=== PATIENT | female | born 1945 | race Two or more races ===

== ENCOUNTER 2018-05-18 21:37 | Inpatient (IN) | payer OTHER, MEDICAID ==
[~2018-05-18] VITALS: Ht 147.3 cm; Wt 58.8 kg
[2018-05-18 22:28] LABS: Basophils # (auto) 0 uL; Basophils % (auto) 0.1 % (0.0-2.0); Eosinophils # (auto) 0 uL; Eosinophils % (auto) 0.1 % (0.0-7.0); Hematocrit 36.4 % (36.0-46.0); Hemoglobin 12.3 g/dL (12.2-16.2); Lymphocytes # (auto) 0.3 uL; Lymphocytes % (auto) 3.8 % (10.0-50.0); Mean Corpuscular Hemoglobin 30.6 pg (28.0-32.0); Mean Corpuscular Hgb Conc. 33.7 g/dL (32.0-36.0); Mean Corpuscular Volume 90.7 fL (80.0-100.0); Monocytes # (auto) 0 uL; Monocytes % (auto) 0.7 % (0.0-12.0); Neutrophils # (auto) 6.8 uL; Neutrophils % (auto) 95.3 % (37.0-80.0); Platelet Count (auto) 175 10^3/uL (140-450); Red Blood Cells 4.02 10^6/uL (4.0-5.20); Red Cell Distribution Width 16.4 % (11.8-14.3); White Blood Cell 7.1 10^3/uL (4.4-10.8)
[2018-05-18 22:38] LABS: INR 1.28 (0.9-1.15); Partial Thromboplastin Time 27.1 sec (23.78-33.04); Prothrombin Time 13.5 sec (9.27-12.13)
[2018-05-18 22:45] LABS: Lactic Acid w/Reflex 3.3 mmol/L (0.4-2.0)
[2018-05-18 22:59] LABS: Alanine Aminotransferase 50 U/L (13-56); Albumin 1.9 g/dL (3.4-5.0); Alkaline Phosphatase 245 U/L (45-117); Anion Gap 5 (5-15); Aspartate Aminotransferase 133 U/L (15-37); BUN/Creatinine Ratio 12.8; Bilirubin, Total 2.5 mg/dL (0.2-1.0); Blood Urea Nitrogen 14 mg/dL (7-18); Calcium 7.9 mg/dL (8.5-10.1); Carbon Dioxide 21 mmol/L (21-32); Chloride 100 mmol/L (98-107); GFR African American 64 mL/min; GFR Non-African American 53 mL/min; Glucose 153 mg/dL (74-106); Sodium 126 mmol/L (136-145); Total Protein 8.3 g/dL (6.4-8.2)
[2018-05-18] MEDS ORDERED: ACETAMINOPHEN 650 mg PER 20 mL UD PO ONE (23:00)
[2018-05-18] MEDS ORDERED: ONDANSETRON HCL 4 MG/2 ML VIAL IV ONE (23:00)
[2018-05-18] MEDS ORDERED: MORPHINE SULFATE 4 MG/ML SYR/VIAL IV ONE (23:00)
[2018-05-18 23:10] LABS: Urine Bacteria MOD /hpf (None Seen); Urine Blood Negative /uL (Negative); Urine Hyaline Cast FEW /lpf (0 - 2); Urine Mucus FEW (None Seen); Urine Specific Gravity 1.021 (1.001-1.035); Urine WBC 14 /hpf (0 - 5)
[2018-05-18] MEDS ORDERED: SODIUM CHLORIDE 0.9% 2,000 ML IV ONE (23:15)
[2018-05-18] MEDS ORDERED: IPRATROPIUM BROM 0.5 MG/2.5ML INH SOL NEB ONE (23:15)
[2018-05-18] MEDS ORDERED: cefTRIAXone 1GM/10ml IVPUSH 10 ML IV ONE (23:15)
[2018-05-18] MEDS ORDERED: ALBUTEROL SULF 2.5 MG/0.5ML(0.5%) NEB SOLN NEB ONE (23:15)
[2018-05-18] MEDS ORDERED: VANCOMYCIN 1GM/250ML 250 ML IV ONE (23:15)
[2018-05-19] MEDS ORDERED: HYDROmorphone HCL 2 MG/ML VL IV ONE (02:15)
[2018-05-19] MEDS ORDERED: SODIUM CHLORIDE 0.9% 1,000 ML IV ONE (02:30)
[2018-05-19] MEDS ORDERED: VANCOMYCIN PER PHARMACY 0 MG IV SCH (02:45)
[2018-05-19] MEDS ORDERED: NITROGLYCERIN 0.4 MG SL TAB SL PRN (02:45)
[2018-05-19] MEDS ORDERED: MORPHINE SULF INJ 2 MG/ML SYRINGE 1ML IV PRN ×2 (02:45→16:00)
[2018-05-19] MEDS ORDERED: ONDANSETRON HCL 4 MG/2 ML VIAL IV PRN (02:45)
[2018-05-19] MEDS ORDERED: LACTULOSE 20Gm/30ML SOLN PO ONE (03:00)
[2018-05-19] MEDS ORDERED: PANTOPRAZOLE 40 MG/10 ML VIAL IV ONE (03:00)
[2018-05-19] MEDS: SODIUM CHLORIDE 0.9% 1,000 ML IV SCH ×3 (03:36→23:51)
[2018-05-19] MEDS: PIPERACILLIN-TAZOB 2.25GM 50 ML IV SCH ×2 (05:37→12:30)
[2018-05-19] MEDS ORDERED: SPIRONOLACTONE 25 MG TAB PO SCH (10:00)
[2018-05-19] MEDS ORDERED: PANTOPRAZOLE 40 MG/10 ML VIAL IV SCH (10:00)
[2018-05-19] MEDS: MORPHINE SULF 15mg ER tab PO SCH ×2 (10:34→21:37)
[2018-05-19] MEDS: LACTULOSE 20Gm/30ML SOLN PO SCH ×2 (10:48→21:39)
[2018-05-19 11:48] VITALS: BP 92/47
[2018-05-19] MEDS ORDERED: fentaNYL CITRATE 100 MCG/2 ML VL ONE (12:53)
[2018-05-19] MEDS ORDERED: MIDAZOLAM HCL 1MG/1ML-2 ML VIAL ONE (12:53)
[2018-05-19] MEDS ORDERED: LIDOCAINE 2% (LOCAL ANESTH.) PF 5ml SDV ONE ×2 (13:11→13:56)
[2018-05-19] MEDS ORDERED: GELATIN 1 SPONGE SIZE 100 TOP ONE (13:12)
[2018-05-19 15:32] LABS: Albumin 1.5 g/dL (3.4-5.0); BUN/Creatinine Ratio 13.7; Bilirubin, Total 1.2 mg/dL (0.2-1.0); Calcium 7.2 mg/dL (8.5-10.1); Potassium 4.1 mmol/L (3.5-5.1)
[2018-05-19] MEDS: VANCOMYCIN 1GM/250ML 250 ML IV SCH (17:14)
[2018-05-19] MEDS: PIPERACILLIN-TAZOB 3.375GM 100 ML IV SCH ×2 (18:51→23:51)
[2018-05-19 19:15] VITALS: BP 121/79
[2018-05-19 21:58] VITALS: BP 126/51
[2018-05-19] MEDS ORDERED: TRAZ100T2 PO (23:47)
[2018-05-20] MEDS: ALBUTEROL SULF 2.5 MG/0.5ML(0.5%) NEB SOLN NEB PRN ×3 (00:38→19:09)
[2018-05-20] MEDS: MORPHINE SULF INJ 2 MG/ML SYRINGE 1ML IV PRN ×3 (04:37→16:20)
[2018-05-20 05:00] VITALS: BP 141/69
[2018-05-20 05:46] LABS: Basophils # (auto) 0 uL; Basophils % (auto) 0.4 % (0.0-2.0); Eosinophils # (auto) 0 uL; Eosinophils % (auto) 0.4 % (0.0-7.0); Hemoglobin 11.1 g/dL (12.2-16.2); Lymphocytes # (auto) 0.7 uL; Lymphocytes % (auto) 6.2 % (10.0-50.0); Mean Corpuscular Hemoglobin 29.9 pg (28.0-32.0); Mean Corpuscular Hgb Conc. 32.8 g/dL (32.0-36.0); Mean Corpuscular Volume 91.2 fL (80.0-100.0); Monocytes # (auto) 0.4 uL; Monocytes % (auto) 3.9 % (0.0-12.0); Neutrophils # (auto) 9.6 uL; Neutrophils % (auto) 89.1 % (37.0-80.0); Platelet Count (auto) 137 10^3/uL (140-450); Red Blood Cells 3.72 10^6/uL (4.0-5.20); Red Cell Distribution Width 16.6 % (11.8-14.3); White Blood Cell 10.8 10^3/uL (4.4-10.8)
[2018-05-20] MEDS: PIPERACILLIN-TAZOB 3.375GM 100 ML IV SCH ×4 (06:07→23:39)
[2018-05-20 06:25] LABS: Albumin 1.5 g/dL (3.4-5.0); Bilirubin, Total 1.1 mg/dL (0.2-1.0); Calcium 7.7 mg/dL (8.5-10.1); Potassium 4.4 mmol/L (3.5-5.1); Total Protein 6.9 g/dL (6.4-8.2)
[2018-05-20 08:33] VITALS: BP 144/84
[2018-05-20] MEDS: MORPHINE SULF 15mg ER tab PO SCH ×2 (10:52→21:22)
[2018-05-20] MEDS: SODIUM CHLORIDE 0.9% 1,000 ML IV SCH ×2 (10:53→21:22)
[2018-05-20] MEDS: LACTULOSE 20Gm/30ML SOLN PO SCH (10:53)
[2018-05-20] MEDS ORDERED: SODIUM CHLORIDE 0.9 % NEB SOLN 3ML NEB ONE (11:47)
[2018-05-20 12:04] VITALS: BP 154/88
[2018-05-20] MEDS ORDERED: BACL10TA PO (13:13)
[2018-05-20] MEDS ORDERED: PROC25RS PO (13:13)
[2018-05-20] MEDS ORDERED: LISI-646 PO (13:13)
[2018-05-20] MEDS ORDERED: SPIR25TA8 PO (13:13)
[2018-05-20] MEDS ORDERED: OMEP20TA PO (13:13)
[2018-05-20] MEDS ORDERED: MORP60TA25 PO (13:13)
[2018-05-20] MEDS ORDERED: LOPE2CAP PO (13:13)
[2018-05-20] MEDS: PANTOPRAZOLE 40 MG TAB PO SCH (13:44)
[2018-05-20] MEDS ORDERED: LACTULOSE 20Gm/30ML SOLN PO ONE (13:45)
[2018-05-20] MEDS ORDERED: SPIRONOLACTONE 25 MG TAB PO ONE (13:45)
[2018-05-20] MEDS: VANCOMYCIN 1GM/250ML 250 ML IV SCH (15:58)
[2018-05-20 16:50] VITALS: BP 152/70
[2018-05-20] MEDS: OXYCODONE W/ ACETAMINOPHEN 5/325MG TABLET PO PRN (19:01)
[2018-05-20] MEDS ORDERED: traZODone HCL 50 MG TAB PO SCH (22:00)
[2018-05-20] MEDS ORDERED: PATIENTS OWN MEDICATION (Trazodone Hcl 100 MG) PO SCH (22:00)
[2018-05-20 22:19] VITALS: BP 139/78
[2018-05-21] MEDS: ALBUTEROL SULF 2.5 MG/0.5ML(0.5%) NEB SOLN NEB PRN (03:53)
[2018-05-21] MEDS: OXYCODONE W/ ACETAMINOPHEN 5/325MG TABLET PO PRN ×2 (05:43→12:53)
[2018-05-21] MEDS: SODIUM CHLORIDE 0.9% 1,000 ML IV SCH ×2 (05:43→15:23)
[2018-05-21] MEDS: PIPERACILLIN-TAZOB 3.375GM 100 ML IV SCH ×3 (05:43→17:26)
[2018-05-21 05:55] VITALS: BP 150/78
[2018-05-21 08:42] VITALS: BP 140/77
[2018-05-21] MEDS: MORPHINE SULF 15mg ER tab PO SCH (09:10)
[2018-05-21] MEDS: PANTOPRAZOLE 40 MG TAB PO SCH (09:11)
[2018-05-21] MEDS ORDERED: PATIENTS OWN MEDICATION (Omeprazole (Gnp Omeprazole) 20 MG) PO SCH (10:00)
[2018-05-21] MEDS ORDERED: SPIRONOLACTONE 25 MG TAB PO SCH (10:00)
[2018-05-21] MEDS ORDERED: LACTULOSE 20Gm/30ML SOLN PO SCH (10:00)
[2018-05-21 13:00] VITALS: BP 140/77
[2018-05-21] MEDS: VANCOMYCIN 1GM/250ML 250 ML IV SCH (15:23)
[2018-05-21 16:53] VITALS: BP 159/77
[2018-05-21 17:18] VITALS: BP 159/77
== END 2018-05-21 19:00 | disposition home health service (06) | DRG 441 ==
LOC: EDBD 21:37 → ER 21:40 → TELE 21:41 → TELE-CENTR 05-19 19:28
PROVIDERS: ADMIT Nurse Practitioner; ATTEND Hospitalist
PROC: 0FB03ZX Excision of Liver, Percutaneous Approach, Diagnostic (ICD-10-PCS; principal; 2018-05-19)
PROC: 0F923ZZ Drainage of Left Lobe Liver, Percutaneous Approach (ICD-10-PCS; 2018-05-19)
DX: K75.0 Abscess of liver (principal); G93.41 Metabolic encephalopathy; E43 Unspecified severe protein-calorie malnutrition; C22.8 Malignant neoplasm of liver, primary, unspecified as to type; N39.0 Urinary tract infection, site not specified; E72.20 Disorder of urea cycle metabolism, unspecified; C78.00 Secondary malignant neoplasm of unspecified lung; C79.72 Secondary malignant neoplasm of left adrenal gland; C79.71 Secondary malignant neoplasm of right adrenal gland; C22.0 Liver cell carcinoma; B96.20 Unspecified Escherichia coli [E. coli] as the cause of diseases classified elsewhere; B96.89 Other specified bacterial agents as the cause of diseases classified elsewhere; D25.9 Leiomyoma of uterus, unspecified; D69.6 Thrombocytopenia, unspecified; I10 Essential (primary) hypertension; K74.60 Unspecified cirrhosis of liver; M41.9 Scoliosis, unspecified; M43.17 Spondylolisthesis, lumbosacral region; M51.36 Other intervertebral disc degeneration, lumbar region; N20.0 Calculus of kidney; Z80.0 Family history of malignant neoplasm of digestive organs; Z85.05 Personal history of malignant neoplasm of liver; Z87.891 Personal history of nicotine dependence
CPT/HCPCS: 10022; 36415; 47000; 51702; 70450; 71045; 74150; 74176; 75989; 77012; 80053; 80202; 80320; 81001; 82105; 82140; 83605; 84484; 85025; 85610; 85730; 87040; 87077; 87086; 87186; 87205; 92610; 93005; 94640; 94761; 96361; 96365; 96375; 96376; 97163; C1729; C9113; J0696; J2001; J2250; J2405; J2543

== ENCOUNTER 2018-07-06 18:32 | Inpatient (IN) | payer OTHER, MEDICAID ==
[~2018-07-06] VITALS: Ht 152.4 cm; Wt 53.5 kg
[~2018-07-06 18:32] MED LIST: LISI-646 PO; MORP60TA25 PO; OMEP20TA PO; PROC25RS PO; SPIR25TA8 PO; TRAZ100T2 PO
[2018-07-06] MEDS ORDERED: IPRATROPIUM BROM 0.5 MG/2.5ML INH SOL NEB ONE (19:15)
[2018-07-06] MEDS ORDERED: ALBUTEROL SULF 2.5 MG/0.5ML(0.5%) NEB SOLN NEB ONE (19:15)
[2018-07-06] MEDS ORDERED: LABETALOL HCL 5 MG/ML ML 20ML VIAL IV ONE (20:15)
[2018-07-06] MEDS ORDERED: methylPREDNISolone SOD SUCC 125 MG/2 ML VL IV ONE (20:15)
[2018-07-06 21:00] LABS: Basophils # (auto) 0.1 uL; Basophils % (auto) 0.4 % (0.0-2.0); Eosinophils # (auto) 0 uL; Eosinophils % (auto) 0.1 % (0.0-7.0); Hematocrit 33.9 % (36.0-46.0); Hemoglobin 10.9 g/dL (12.2-16.2); Lymphocytes # (auto) 1.3 uL; Lymphocytes % (auto) 7.4 % (10.0-50.0); Mean Corpuscular Hemoglobin 30.2 pg (28.0-32.0); Mean Corpuscular Hgb Conc. 32.3 g/dL (32.0-36.0); Mean Corpuscular Volume 93.5 fL (80.0-100.0); Monocytes # (auto) 1.1 uL; Monocytes % (auto) 6.3 % (0.0-12.0); Neutrophils # (auto) 14.7 uL; Neutrophils % (auto) 85.8 % (37.0-80.0); Platelet Count (auto) 299 10^3/uL (140-450); Red Blood Cells 3.63 10^6/uL (4.0-5.20); Red Cell Distribution Width 18.9 % (11.8-14.3); White Blood Cell 17.1 10^3/uL (4.4-10.8)
[2018-07-06] MEDS ORDERED: PROMETHAZINE W/CODEINE 5 ML ORAL SYRUP PO ONE (21:00)
[2018-07-06 21:20] LABS: INR 1.41 (0.9-1.15); Prothrombin Time 14.8 sec (9.27-12.13)
[2018-07-06 21:21] LABS: Albumin 1.8 g/dL (3.4-5.0); Calcium 7.7 mg/dL (8.5-10.1); Potassium 3.5 mmol/L (3.5-5.1)
[2018-07-06 21:23] LABS: Lactic Acid w/Reflex 4.4 mmol/L (0.4-2.0)
[2018-07-06 21:26] LABS: BUN/Creatinine Ratio 15.8; Total Protein 7.7 g/dL (6.4-8.2)
[2018-07-06 21:30] LABS: Magnesium 1.2 mg/dL (1.6-2.6)
[2018-07-06] MEDS ORDERED: LEVOFLOXACIN 750MG 150 ML IV ONE (21:45)
[2018-07-06] MEDS ORDERED: SODIUM CHLORIDE 0.9% 1,750 ML IV ONE (21:45)
[2018-07-06] MEDS ORDERED: LORazepam 2MG/ML-1ML VIAL IV ONE (22:15)
[2018-07-06 23:48] LABS: Lactic Acid w/Reflex 3.3 mmol/L (0.4-2.0)
[2018-07-07] VITALS (9 sets, daily range): BP systolic 99–112; BP diastolic 45–51
[2018-07-07] MEDS ORDERED: Acetam/CODEINE 120mg/12mg per 5mL UD PO ONE (01:30)
[2018-07-07 01:31] LABS: Urine Bacteria NONE SEEN /hpf (None Seen); Urine Blood Negative /uL (Negative); Urine Specific Gravity 1.005 (1.001-1.035); Urine WBC 1 /hpf (0 - 5)
[2018-07-07] MEDS: ALBUTEROL SULF 2.5 MG/0.5ML(0.5%) NEB SOLN NEB SCH ×6 (02:32→22:01)
[2018-07-07] MEDS: IPRATROPIUM BROM 0.5 MG/2.5ML INH SOL NEB SCH ×6 (02:32→22:01)
[2018-07-07] MEDS ORDERED: ACETAMINOPHEN 500 MG TAB PO PRN (03:30)
[2018-07-07] MEDS ORDERED: MORPHINE SULFATE 4 MG/ML SYR/VIAL IV PRN (03:30)
[2018-07-07] MEDS ORDERED: LORazepam 0.5 MG TAB PO PRN (03:30)
[2018-07-07] MEDS ORDERED: ONDANSETRON HCL 4 MG/2 ML VIAL IV PRN (03:30)
[2018-07-07] MEDS ORDERED: MAGNESIUM SULFATE 1GM/100ML 100 ML IV ONE (04:00)
[2018-07-07] MEDS ORDERED: cefTRIAXone 1GM/50ML D5W 50 ML IV SCH (05:00)
[2018-07-07] MEDS ORDERED: AZITHROMYCIN 500MG/ 250ML 250 ML IV SCH (06:00)
[2018-07-07] MEDS: DOXYCYCLINE 100MG/250ML 250 ML IV SCH ×2 (06:05→17:47)
[2018-07-07 07:47] LABS: Basophils # (auto) 0 uL; Basophils % (auto) 0.7 % (0.0-2.0); Eosinophils # (auto) 0 uL; Hematocrit 31.5 % (36.0-46.0); Hemoglobin 10.3 g/dL (12.2-16.2); Lymphocytes # (auto) 0.4 uL; Lymphocytes % (auto) 7.2 % (10.0-50.0); Mean Corpuscular Hemoglobin 30.8 pg (28.0-32.0); Mean Corpuscular Hgb Conc. 32.7 g/dL (32.0-36.0); Mean Corpuscular Volume 94.1 fL (80.0-100.0); Monocytes # (auto) 0.2 uL; Monocytes % (auto) 3.9 % (0.0-12.0); Neutrophils # (auto) 4.9 uL; Neutrophils % (auto) 88.2 % (37.0-80.0); Platelet Count (auto) 160 10^3/uL (140-450); Red Blood Cells 3.35 10^6/uL (4.0-5.20); Red Cell Distribution Width 18.7 % (11.8-14.3); White Blood Cell 5.6 10^3/uL (4.4-10.8)
[2018-07-07 08:05] LABS: BUN/Creatinine Ratio 20.4; Calcium 7.4 mg/dL (8.5-10.1); Potassium 3.5 mmol/L (3.5-5.1)
[2018-07-07] MEDS ORDERED: LISINOPRIL 20 MG TAB PO SCH (10:00)
[2018-07-07] MEDS ORDERED: guaiFENesin-DM 100/10mg/5ml SYR PO PRN (15:45)
[2018-07-07] MEDS ORDERED: IPRIH INH (17:59)
[2018-07-07] MEDS ORDERED: DOXY-216 PO (17:59)
[2018-07-07] MEDS ORDERED: DEXT1SYP9 PO (17:59)
[2018-07-07] MEDS ORDERED: traZODone HCL 50 MG TAB PO SCH (22:00)
[2018-07-08] MEDS: ALBUTEROL SULF 2.5 MG/0.5ML(0.5%) NEB SOLN NEB SCH ×2 (02:02→06:57)
[2018-07-08] MEDS: IPRATROPIUM BROM 0.5 MG/2.5ML INH SOL NEB SCH ×2 (02:02→06:57)
[2018-07-08 05:00] VITALS: BP 104/54
[2018-07-08] MEDS: DOXYCYCLINE 100MG/250ML 250 ML IV SCH (06:00)
[2018-07-08 08:00] VITALS: BP 123/54
== END 2018-07-08 09:30 | disposition home health service (06) | DRG 871 ==
LOC: ER 18:32 → OVERFLOW 18:33 → EAST 07-07 04:35
PROVIDERS: ADMIT Nurse Practitioner Family; ATTEND Internal Medicine
DX: A40.3 Sepsis due to Streptococcus pneumoniae (principal); E43 Unspecified severe protein-calorie malnutrition; J13 Pneumonia due to Streptococcus pneumoniae; E87.1 Hypo-osmolality and hyponatremia; C64.9 Malignant neoplasm of unspecified kidney, except renal pelvis; C78.7 Secondary malignant neoplasm of liver and intrahepatic bile duct; Z51.5 Encounter for palliative care; Z66 Do not resuscitate; E11.65 Type 2 diabetes mellitus with hyperglycemia; E83.42 Hypomagnesemia; E86.0 Dehydration; I10 Essential (primary) hypertension; K21.9 Gastro-esophageal reflux disease without esophagitis; G89.4 Chronic pain syndrome; Z86.73 Personal history of transient ischemic attack (TIA), and cerebral infarction without residual deficits; Z68.23 Body mass index [BMI] 23.0-23.9, adult
CPT/HCPCS: 36415; 36600; 71045; 80048; 80053; 81001; 82805; 83605; 83735; 83880; 84484; 85025; 85610; 85730; 87040; 94640; 94761; 96361; 96365; 96375; G0378; J1956; J3490